=== PATIENT | female | born 1960 | race Caucasian/White ===

== ENCOUNTER 2023-08-06 12:40 | Inpatient (IN) | payer MEDICARE, MEDICAID ==
[~2023-08-06] VITALS: Ht 154.9 cm; Wt 42.7 kg
[2023-08-06 14:12] LABS: COVID AG,FIA SOURCE NASAL SWAB
[2023-08-06 14:16] LABS: SARS-COV2 (COVID) ANTIGEN,FIA Negative (Negative)
[2023-08-06 14:18] LABS: BASOPHILS % (AUTO) 0.6 % (0.0-2.0); EOSINOPHILS % (AUTO) 0.2 % (1.0-6.0); HEMATOCRIT 36.4 % (36-46); HEMOGLOBIN 12.1 g/dL (12.0-16.0); LYMPHOCYTES # (AUTO) 1.9 K/uL (1.0-4.8); LYMPHOCYTES % (AUTO) 27.6 % (22.0-44.0); MEAN CORPUSCULAR HEMOGLOBIN 29.4 pg (26.0-34.0); MEAN CORPUSCULAR HGB CONC 33.2 G/dL (31.0-37.0); MEAN CORPUSCULAR VOLUME 88 fL (80-100); MONOCYTES # (AUTO) 0.6 K/uL (0.1-1.0); MONOCYTES % (AUTO) 8.4 % (2.0-9.0); NEUTROPHILS # (AUTO) 4.2 K/uL (1.8-7.7); NEUTROPHILS % (AUTO) 63.2 % (40.0-70.0); PLATELET COUNT (AUTO) 238 K/uL (150-450); RED BLOOD CELL COUNT(AUTO) 4.13 MIL/uL (4.00-5.20); RED CELL DISTRIBUTION WIDTH 13.5 % (11.5-14.5); WHITE BLOOD COUNT (AUTO) 6.7 K/uL (4.5-11.0)
[2023-08-06 14:28] LABS: ANION GAP 8 mmol/L (8-16); CALCIUM, TOTAL 9.3 mg/dL (8.8-10.5); CARBON DIOXIDE 29 mmol/L (22-29); CHLORIDE 101 mmol/L (98-107); CREATININE 0.72 mg/dL (0.60-1.30); GLOMERULAR FILTR. RATE CALC > 60 mL/min (>60); GLUCOSE,RANDOM 115 mg/dL (70-110); POTASSIUM 3.7 mmol/L (3.5-5.1); SODIUM SERUM 138 mmol/L (136-145); UREA NITROGEN, BLOOD 10 mg/dL (7-18)
[2023-08-06 14:29] LABS: ALCOHOL, BLOOD (SERUM) < 3 mg/dL (0-10)
[2023-08-06 14:34] LABS: ALANINE AMINOTRANSFERASE 24 U/L (12-78); ALBUMIN 3.8 g/dL (3.4-5.0); ALKALINE PHOSPHATASE 72 U/L (46-116); ASPARTATE AMINOTRANSFERASE 15 U/L (15-37); BILIRUBIN,TOTAL 0.3 mg/dL (0.1-1.0); TOTAL PROTEIN, SERUM 7.8 g/dL (6.4-8.2)
[2023-08-06 14:57] VITALS: BP 136/68; PULSE 93; RESP 19; TEMP 98.2
[2023-08-06 17:00] LABS: APPEARANCE,URINE CLEAR (CLEAR); BILIRUBIN,URINE NEGATIVE (NEGATIVE); COLOR,URINE LIGHT YELLOW (YELLOW); GLUCOSE, URINE (UA) 300-500 mg/dL (NEGATIVE); KETONES,URINE NEGATIVE (NEGATIVE); LEUKOCYTE ESTERASE ,URINE NEGATIVE (NEGATIVE); NITRATE,URINE NEGATIVE (NEGATIVE); OCCULT BLOOD,URINE NEGATIVE (NEGATIVE); PH,URINE 6.5 (5.0-8.0); PROTEIN,URINE NEGATIVE (NEGATIVE); SPECIFIC GRAVITIY, URINE 1.008 (1.003-1.030); UROBILINOGEN,URINE <=1.0 mg/dL (<=1.0)
[2023-08-06 17:05] LABS: AMPHET/METH SCREEN,URINE NEGATIVE (NEGATIVE); BARBITURATE SCREEN, URINE NEGATIVE (NEGATIVE); BENZODIAZEPINES SCREEN,URINE NEGATIVE (NEGATIVE); CANNABINOID SCREEN,URINE NEGATIVE (NEGATIVE); COCAINE SCREEN,URINE NEGATIVE (NEGATIVE); METHADONE SCREEN, URINE NEGATIVE (NEGATIVE); OPIATE SCREEN,URINE NEGATIVE (NEGATIVE); PHENCYCLIDINE SCREEN,URINE NEGATIVE (NEGATIVE)
[2023-08-06 17:11] LABS: BACTERIA,URINE None Seen /HPF (None Seen); RBC,URINE None Seen /HPF (0-2); SQUAMOUS EPITHELIAL CELL,UR Rare /LPF (None Seen); WBC,URINE None Seen /HPF (0-5)
[2023-08-06 17:23] LABS: ALCOHOL, URINE DRUG SCREEN NEGATIVE (NEGATIVE)
[2023-08-06 17:35] LABS: PH,URINE DRUG SCREEN 6.5 (5.0-8.0)
[2023-08-06] MEDS: LORazepam 2 MG TABLET PO PRN (19:37)
[2023-08-06] MEDS: QUEtiapine FUMARATE 100 MG TABLET PO PRN (19:37)
[2023-08-07 01:47] VITALS: BP 110/57; PULSE 64; RESP 17; TEMP 97.3; O2SAT 97
[2023-08-07] MEDS ORDERED: INFLUENZA VIRUS VACCINE QVS 2023-24 (6MO+)/PF 60 MCG/0.5 ML SYRINGE IM. ONE (03:15)
[2023-08-07 09:00] VITALS: BP 112/64; PULSE 70; RESP 18; TEMP 97; O2SAT 99
[2023-08-07] MEDS ORDERED: LURA40TA4 PO (09:28)
[2023-08-07] MEDS ORDERED: BENZ1TAB84 PO (09:28)
[2023-08-07] MEDS ORDERED: PANT40TA54 PO (09:28)
[2023-08-07] MEDS ORDERED: METF-445 PO (09:28)
[2023-08-07] MEDS ORDERED: ATOR10TA69 PO (09:28)
[2023-08-07] MEDS ORDERED: BRIV50TA PO (09:28)
[2023-08-07] MEDS ORDERED: GLIP5TAB15 PO (09:28)
[2023-08-07] MEDS ORDERED: TRAZ-252 PO (09:28)
[2023-08-07] MEDS: BENZTROPINE MESYLATE 1 MG TABLET PO SCH ×2 (12:57→16:20)
[2023-08-07] MEDS: LURASIDONE HCL 40 MG TABLET PO SCH (16:26)
[2023-08-07] MEDS: TraZODone HCL 50 MG TABLET PO SCH (20:20)
[2023-08-07 21:11] VITALS: BP 115/60; PULSE 72; RESP 18; TEMP 97.4; O2SAT 97
[2023-08-08 08:33] VITALS: BP 118/60; PULSE 68; RESP 18; TEMP 97.6; O2SAT 98
[2023-08-08] MEDS: BENZTROPINE MESYLATE 1 MG TABLET PO SCH ×3 (08:40→18:06)
[2023-08-08] MEDS: LORazepam 2 MG TABLET PO PRN ×2 (08:40→13:29)
[2023-08-08] MEDS: QUEtiapine FUMARATE 100 MG TABLET PO PRN (08:40)
[2023-08-08] MEDS: LURASIDONE HCL 40 MG TABLET PO SCH (18:06)
[2023-08-08] MEDS: TraZODone HCL 50 MG TABLET PO SCH (21:18)
[2023-08-09] MEDS: BENZTROPINE MESYLATE 1 MG TABLET PO SCH ×3 (11:36→18:00)
[2023-08-09 15:04] VITALS: BP_SYST 101; BP_SYST 144; BP_DIAS 58; BP_DIAS 96; PULSE 70; PULSE 83; RESP 16; RESP 18; TEMP 97; TEMP 98.1; O2SAT 97; O2SAT 98
[2023-08-09] MEDS: LURASIDONE HCL 40 MG TABLET PO SCH (17:59)
[2023-08-09 20:15] VITALS: BP 145/55; PULSE 81; RESP 18; TEMP 97.5; O2SAT 97
[2023-08-09] MEDS: TraZODone HCL 50 MG TABLET PO SCH (20:29)
[2023-08-10] MEDS: QUEtiapine FUMARATE 100 MG TABLET PO PRN (02:34)
[2023-08-10 03:05] VITALS: PULSE 86; RESP 18; TEMP 97.8; O2SAT 97
[2023-08-10] MEDS: BENZTROPINE MESYLATE 1 MG TABLET PO SCH ×3 (09:25→16:55)
[2023-08-10] MEDS: LURASIDONE HCL 40 MG TABLET PO SCH (16:55)
[2023-08-10] MEDS: TraZODone HCL 50 MG TABLET PO SCH (20:34)
[2023-08-10 21:45] VITALS: BP 115/67; PULSE 93; RESP 18; TEMP 98.1
[2023-08-11] MEDS: BENZTROPINE MESYLATE 1 MG TABLET PO SCH ×3 (08:30→16:47)
[2023-08-11 09:42] VITALS: BP 130/64; PULSE 70; RESP 18; TEMP 97.6; O2SAT 98
[2023-08-11] MEDS: LURASIDONE HCL 40 MG TABLET PO SCH (16:48)
[2023-08-11] MEDS: TraZODone HCL 50 MG TABLET PO SCH (20:22)
[2023-08-11 20:50] VITALS: BP 134/69; PULSE 75; RESP 18; TEMP 97.8
[2023-08-12] MEDS: LORazepam 2 MG TABLET PO PRN (00:32)
[2023-08-12] MEDS: QUEtiapine FUMARATE 100 MG TABLET PO PRN (00:32)
[2023-08-12] MEDS: BENZTROPINE MESYLATE 1 MG TABLET PO SCH ×3 (08:30→17:04)
[2023-08-12] MEDS ORDERED: ALBUTEROL SULFATE 2.5 MG/0.5 ML NEB SOLUTION NEB PRN (09:30)
[2023-08-12 09:45] VITALS: BP 132/91; PULSE 96; RESP 17; TEMP 97.6
[2023-08-12 09:56] LABS: GLUCOMETER DEV NAME(LOC) 3EX.2; GLUCOSE,POINT OF CARE 169 MG/DL (70-110)
[2023-08-12] MEDS: LevETIRAcetam 500 MG TABLET PO SCH ×2 (10:39→17:04)
[2023-08-12] MEDS: LACOSAMIDE 100 MG TABLET PO SCH ×2 (10:39→17:04)
[2023-08-12] MEDS: MULTIVITAMINS WITH MINERALS, THERAPEUTIC TABLET PO SCH (10:39)
[2023-08-12] MEDS: LACTULOSE 20 GM/30 ML SOLUTION UDCUP PO SCH ×2 (12:30→17:00)
[2023-08-12] MEDS ORDERED: GlipiZIDE 5 MG TABLET PO SCH (17:00)
[2023-08-12] MEDS: LURASIDONE HCL 60 MG TABLET PO SCH (17:04)
[2023-08-12] MEDS: MetFORMIN HCL 850 MG TABLET PO SCH (17:04)
[2023-08-12] MEDS: GlipiZIDE 5 MG TABLET PO SCH (17:04)
[2023-08-12 17:27] LABS: GLUCOMETER DEV NAME(LOC) 3EX.2; GLUCOSE,POINT OF CARE 237 MG/DL (70-110)
[2023-08-12] MEDS ORDERED: MetFORMIN HCL 850 MG TABLET PO SCH (17:30)
[2023-08-12] MEDS: ATORVASTATIN CALCIUM 10 MG TABLET PO SCH (20:21)
[2023-08-12] MEDS: TraZODone HCL 50 MG TABLET PO SCH (20:21)
[2023-08-12 20:59] VITALS: BP 130/79; PULSE 75; RESP 18; TEMP 97.7
[2023-08-13 06:21] LABS: GLUCOMETER DEV NAME(LOC) 3EX.2; GLUCOSE,POINT OF CARE 228 MG/DL (70-110)
[2023-08-13 08:05] LABS: HEMOGLOBIN A1C 6.6 % (3.8-5.6)
[2023-08-13] MEDS: LevETIRAcetam 500 MG TABLET PO SCH ×2 (08:05→17:08)
[2023-08-13] MEDS: PANTOPRAZOLE SODIUM 40 MG DR TABLET PO SCH (08:05)
[2023-08-13] MEDS: MetFORMIN HCL 850 MG TABLET PO SCH ×2 (08:05→17:08)
[2023-08-13] MEDS: MULTIVITAMINS WITH MINERALS, THERAPEUTIC TABLET PO SCH (08:05)
[2023-08-13] MEDS: LACOSAMIDE 100 MG TABLET PO SCH ×2 (08:05→17:08)
[2023-08-13] MEDS: GlipiZIDE 5 MG TABLET PO SCH ×2 (08:05→17:08)
[2023-08-13] MEDS: BENZTROPINE MESYLATE 1 MG TABLET PO SCH ×3 (08:05→17:08)
[2023-08-13] MEDS: LACTULOSE 20 GM/30 ML SOLUTION UDCUP PO SCH ×3 (08:06→17:08)
[2023-08-13 08:18] LABS: CHOL/HDL RATIO 3.6 (3.9-5.7); THYROID STIMULATING HORMONE 0.7 uIU/mL (0.36-3.74)
[2023-08-13 09:00] VITALS: BP 132/60; PULSE 100; RESP 19; O2SAT 99
[2023-08-13] MEDS: LURASIDONE HCL 60 MG TABLET PO SCH (17:08)
[2023-08-13 17:26] LABS: GLUCOMETER DEV NAME(LOC) 3EX.2; GLUCOSE,POINT OF CARE 104 MG/DL (70-110)
[2023-08-13] MEDS: TraZODone HCL 50 MG TABLET PO SCH (20:14)
[2023-08-13] MEDS: ATORVASTATIN CALCIUM 10 MG TABLET PO SCH (20:14)
[2023-08-13 20:51] VITALS: RESP 18; TEMP 98
[2023-08-14 06:26] LABS: GLUCOMETER DEV NAME(LOC) 3EX.2; GLUCOSE,POINT OF CARE 206 MG/DL (70-110)
[2023-08-14 08:26] VITALS: BP 161/75; PULSE 67; RESP 16; TEMP 97.6; O2SAT 98
[2023-08-14] MEDS: MULTIVITAMINS WITH MINERALS, THERAPEUTIC TABLET PO SCH (08:43)
[2023-08-14] MEDS: LACOSAMIDE 100 MG TABLET PO SCH ×2 (08:43→17:27)
[2023-08-14] MEDS: LevETIRAcetam 500 MG TABLET PO SCH ×2 (08:43→17:27)
[2023-08-14] MEDS: LACTULOSE 20 GM/30 ML SOLUTION UDCUP PO SCH ×3 (08:43→17:27)
[2023-08-14] MEDS: BENZTROPINE MESYLATE 1 MG TABLET PO SCH ×3 (08:43→17:27)
[2023-08-14] MEDS: PANTOPRAZOLE SODIUM 40 MG DR TABLET PO SCH (08:43)
[2023-08-14] MEDS: MetFORMIN HCL 850 MG TABLET PO SCH ×2 (08:44→17:31)
[2023-08-14] MEDS: GlipiZIDE 5 MG TABLET PO SCH ×2 (08:48→17:34)
[2023-08-14 16:51] LABS: GLUCOMETER DEV NAME(LOC) 3EX.2; GLUCOSE,POINT OF CARE 222 MG/DL (70-110)
[2023-08-14] MEDS: LURASIDONE HCL 60 MG TABLET PO SCH (17:28)
[2023-08-14 20:30] VITALS: RESP 17; TEMP 97.7
[2023-08-14] MEDS: TraZODone HCL 50 MG TABLET PO SCH (21:00)
[2023-08-14] MEDS: ATORVASTATIN CALCIUM 10 MG TABLET PO SCH (21:00)
[2023-08-15 05:31] LABS: GLUCOMETER DEV NAME(LOC) 3EX.2; GLUCOSE,POINT OF CARE 170 MG/DL (70-110)
[2023-08-15] MEDS: GlipiZIDE 5 MG TABLET PO SCH ×2 (07:54→16:47)
[2023-08-15] MEDS: MetFORMIN HCL 850 MG TABLET PO SCH ×2 (07:54→16:47)
[2023-08-15] MEDS: PANTOPRAZOLE SODIUM 40 MG DR TABLET PO SCH (07:56)
[2023-08-15] MEDS: LACOSAMIDE 100 MG TABLET PO SCH ×2 (07:56→16:47)
[2023-08-15] MEDS: MULTIVITAMINS WITH MINERALS, THERAPEUTIC TABLET PO SCH (07:56)
[2023-08-15] MEDS: LevETIRAcetam 500 MG TABLET PO SCH ×2 (07:56→16:48)
[2023-08-15] MEDS: BENZTROPINE MESYLATE 1 MG TABLET PO SCH ×3 (07:57→16:47)
[2023-08-15] MEDS: LACTULOSE 20 GM/30 ML SOLUTION UDCUP PO SCH ×3 (07:57→16:47)
[2023-08-15 08:22] VITALS: RESP 19; TEMP 97.5
[2023-08-15 11:46] LABS: GLUCOMETER DEV NAME(LOC) 3EX.2; GLUCOSE,POINT OF CARE 213 MG/DL (70-110)
[2023-08-15 16:45] LABS: GLUCOMETER DEV NAME(LOC) 3EX.2; GLUCOSE,POINT OF CARE 147 MG/DL (70-110)
[2023-08-15] MEDS: LURASIDONE HCL 60 MG TABLET PO SCH (17:48)
[2023-08-15 20:30] VITALS: RESP 18; TEMP 97.6
[2023-08-15] MEDS: TraZODone HCL 50 MG TABLET PO SCH (21:32)
[2023-08-15] MEDS: ATORVASTATIN CALCIUM 10 MG TABLET PO SCH (21:33)
[2023-08-16] MEDS: MULTIVITAMINS WITH MINERALS, THERAPEUTIC TABLET PO SCH (08:32)
[2023-08-16] MEDS: PANTOPRAZOLE SODIUM 40 MG DR TABLET PO SCH (08:32)
[2023-08-16] MEDS: LevETIRAcetam 500 MG TABLET PO SCH ×2 (08:32→16:15)
[2023-08-16] MEDS: LACOSAMIDE 100 MG TABLET PO SCH ×2 (08:33→16:15)
[2023-08-16] MEDS: MetFORMIN HCL 850 MG TABLET PO SCH ×2 (08:33→17:28)
[2023-08-16] MEDS: LACTULOSE 20 GM/30 ML SOLUTION UDCUP PO SCH ×3 (08:33→16:16)
[2023-08-16] MEDS: BENZTROPINE MESYLATE 1 MG TABLET PO SCH ×3 (08:33→16:15)
[2023-08-16] MEDS: GlipiZIDE 5 MG TABLET PO SCH ×2 (08:34→17:28)
[2023-08-16 09:27] VITALS: BP 126/50; PULSE 88; RESP 18; TEMP 97.6; O2SAT 96
[2023-08-16 16:42] LABS: GLUCOMETER DEV NAME(LOC) 3EX.2; GLUCOSE,POINT OF CARE 159 MG/DL (70-110)
[2023-08-16] MEDS: LURASIDONE HCL 60 MG TABLET PO SCH (18:20)
[2023-08-16] MEDS: ATORVASTATIN CALCIUM 10 MG TABLET PO SCH (20:27)
[2023-08-16] MEDS: TraZODone HCL 50 MG TABLET PO SCH (20:27)
[2023-08-16 20:54] VITALS: BP 133/65; PULSE 85; RESP 18; TEMP 97.6
[2023-08-17 06:31] LABS: GLUCOMETER DEV NAME(LOC) 3EX.2; GLUCOSE,POINT OF CARE 149 MG/DL (70-110)
[2023-08-17] MEDS: BENZTROPINE MESYLATE 1 MG TABLET PO SCH ×3 (08:59→16:24)
[2023-08-17] MEDS: LACTULOSE 20 GM/30 ML SOLUTION UDCUP PO SCH ×3 (08:59→16:24)
[2023-08-17] MEDS: PANTOPRAZOLE SODIUM 40 MG DR TABLET PO SCH (09:00)
[2023-08-17] MEDS: LACOSAMIDE 100 MG TABLET PO SCH ×2 (09:00→16:24)
[2023-08-17] MEDS: GlipiZIDE 5 MG TABLET PO SCH ×2 (09:00→16:22)
[2023-08-17] MEDS: MetFORMIN HCL 850 MG TABLET PO SCH ×2 (09:00→16:22)
[2023-08-17] MEDS: LevETIRAcetam 500 MG TABLET PO SCH ×2 (09:02→16:24)
[2023-08-17] MEDS: MULTIVITAMINS WITH MINERALS, THERAPEUTIC TABLET PO SCH (09:02)
[2023-08-17 09:13] VITALS: BP 130/58; PULSE 67; RESP 18; TEMP 97; O2SAT 98
[2023-08-17 16:41] LABS: GLUCOMETER DEV NAME(LOC) 3EX.2; GLUCOSE,POINT OF CARE 192 MG/DL (70-110)
[2023-08-17] MEDS: LURASIDONE HCL 60 MG TABLET PO SCH (17:48)
[2023-08-17 20:28] VITALS: BP 126/45; PULSE 65; RESP 18; TEMP 96.8; O2SAT 95
[2023-08-17] MEDS: TraZODone HCL 50 MG TABLET PO SCH (20:46)
[2023-08-17] MEDS: ATORVASTATIN CALCIUM 10 MG TABLET PO SCH (20:48)
[2023-08-18 05:46] LABS: GLUCOMETER DEV NAME(LOC) 3EX.2; GLUCOSE,POINT OF CARE 175 MG/DL (70-110)
[2023-08-18 08:42] VITALS: BP 114/57; PULSE 64; RESP 18; TEMP 97.4; O2SAT 98
[2023-08-18] MEDS: MetFORMIN HCL 850 MG TABLET PO SCH ×2 (08:59→17:09)
[2023-08-18] MEDS: GlipiZIDE 5 MG TABLET PO SCH ×2 (09:00→17:08)
[2023-08-18] MEDS: LACTULOSE 20 GM/30 ML SOLUTION UDCUP PO SCH ×5 (09:00→17:00)
[2023-08-18] MEDS: LevETIRAcetam 500 MG TABLET PO SCH ×2 (09:03→17:09)
[2023-08-18] MEDS: LACOSAMIDE 100 MG TABLET PO SCH ×2 (09:03→17:09)
[2023-08-18] MEDS: BENZTROPINE MESYLATE 1 MG TABLET PO SCH ×3 (09:03→17:08)
[2023-08-18] MEDS: PANTOPRAZOLE SODIUM 40 MG DR TABLET PO SCH (09:03)
[2023-08-18] MEDS: MULTIVITAMINS WITH MINERALS, THERAPEUTIC TABLET PO SCH (09:03)
[2023-08-18] MEDS: LURASIDONE HCL 60 MG TABLET PO SCH (17:09)
[2023-08-18 17:26] LABS: GLUCOMETER DEV NAME(LOC) 3EX.2; GLUCOSE,POINT OF CARE 129 MG/DL (70-110)
[2023-08-18] MEDS: TraZODone HCL 50 MG TABLET PO SCH (21:00)
[2023-08-18] MEDS: ATORVASTATIN CALCIUM 10 MG TABLET PO SCH (21:00)
[2023-08-19 06:51] LABS: GLUCOMETER DEV NAME(LOC) 3EX.2; GLUCOSE,POINT OF CARE 155 MG/DL (70-110)
[2023-08-19 08:52] VITALS: BP 108/53; PULSE 72; RESP 18; TEMP 97.6; O2SAT 99
[2023-08-19] MEDS: LACTULOSE 20 GM/30 ML SOLUTION UDCUP PO SCH ×3 (08:55→16:38)
[2023-08-19] MEDS: GlipiZIDE 5 MG TABLET PO SCH ×2 (09:02→16:43)
[2023-08-19] MEDS: MetFORMIN HCL 850 MG TABLET PO SCH ×2 (09:05→16:43)
[2023-08-19] MEDS: LACOSAMIDE 100 MG TABLET PO SCH ×2 (09:05→16:43)
[2023-08-19] MEDS: LevETIRAcetam 500 MG TABLET PO SCH ×2 (09:05→16:43)
[2023-08-19] MEDS: MULTIVITAMINS WITH MINERALS, THERAPEUTIC TABLET PO SCH (09:05)
[2023-08-19] MEDS: BENZTROPINE MESYLATE 1 MG TABLET PO SCH ×5 (09:05→17:00)
[2023-08-19] MEDS: PANTOPRAZOLE SODIUM 40 MG DR TABLET PO SCH (09:06)
[2023-08-19] MEDS: LURASIDONE HCL 60 MG TABLET PO SCH (16:43)
[2023-08-19 17:26] LABS: GLUCOMETER DEV NAME(LOC) 3EX.2; GLUCOSE,POINT OF CARE 141 MG/DL (70-110)
[2023-08-19] MEDS: ATORVASTATIN CALCIUM 10 MG TABLET PO SCH (20:47)
[2023-08-19] MEDS: TraZODone HCL 50 MG TABLET PO SCH (20:47)
[2023-08-20] MEDS: GlipiZIDE 5 MG TABLET PO SCH ×2 (06:18→17:03)
[2023-08-20] MEDS: MetFORMIN HCL 850 MG TABLET PO SCH ×2 (06:19→17:03)
[2023-08-20 06:34] LABS: GLUCOMETER DEV NAME(LOC) 3EX.2; GLUCOSE,POINT OF CARE 94 MG/DL (70-110)
[2023-08-20] MEDS: LevETIRAcetam 500 MG TABLET PO SCH ×2 (08:08→17:03)
[2023-08-20] MEDS: BENZTROPINE MESYLATE 1 MG TABLET PO SCH ×3 (08:08→17:25)
[2023-08-20] MEDS: PANTOPRAZOLE SODIUM 40 MG DR TABLET PO SCH (08:09)
[2023-08-20] MEDS: MULTIVITAMINS WITH MINERALS, THERAPEUTIC TABLET PO SCH (08:10)
[2023-08-20] MEDS: LACOSAMIDE 100 MG TABLET PO SCH ×2 (08:10→17:03)
[2023-08-20] MEDS: LACTULOSE 20 GM/30 ML SOLUTION UDCUP PO SCH ×3 (08:12→17:00)
[2023-08-20 08:25] VITALS: BP 99/59; PULSE 69; RESP 18; TEMP 97.6; O2SAT 100
[2023-08-20] MEDS: LURASIDONE HCL 60 MG TABLET PO SCH (17:03)
[2023-08-20 17:17] LABS: GLUCOMETER DEV NAME(LOC) 3EX.2; GLUCOSE,POINT OF CARE 150 MG/DL (70-110)
[2023-08-20 20:36] VITALS: RESP 18
[2023-08-20] MEDS: TraZODone HCL 50 MG TABLET PO SCH (20:48)
[2023-08-20] MEDS: ATORVASTATIN CALCIUM 10 MG TABLET PO SCH (20:48)
[2023-08-21 05:46] LABS: GLUCOMETER DEV NAME(LOC) 3EX.2; GLUCOSE,POINT OF CARE 72 MG/DL (70-110)
[2023-08-21] MEDS: GlipiZIDE 5 MG TABLET PO SCH ×2 (06:37→17:23)
[2023-08-21] MEDS: MetFORMIN HCL 850 MG TABLET PO SCH ×2 (06:48→17:22)
[2023-08-21] MEDS: PANTOPRAZOLE SODIUM 40 MG DR TABLET PO SCH (08:43)
[2023-08-21] MEDS: MULTIVITAMINS WITH MINERALS, THERAPEUTIC TABLET PO SCH (08:43)
[2023-08-21] MEDS: BENZTROPINE MESYLATE 1 MG TABLET PO SCH ×3 (08:43→17:21)
[2023-08-21] MEDS: LACOSAMIDE 100 MG TABLET PO SCH ×2 (08:43→17:21)
[2023-08-21] MEDS: LevETIRAcetam 500 MG TABLET PO SCH ×2 (08:43→17:21)
[2023-08-21] MEDS: LACTULOSE 20 GM/30 ML SOLUTION UDCUP PO SCH ×3 (08:45→17:21)
[2023-08-21 09:14] VITALS: BP 130/46; PULSE 76; RESP 19; TEMP 97.6; O2SAT 98
[2023-08-21 11:56] LABS: GLUCOMETER DEV NAME(LOC) 3EX.2; GLUCOSE,POINT OF CARE 85 MG/DL (70-110)
[2023-08-21 17:11] LABS: GLUCOMETER DEV NAME(LOC) 3EX.2; GLUCOSE,POINT OF CARE 106 MG/DL (70-110)
[2023-08-21] MEDS: LURASIDONE HCL 60 MG TABLET PO SCH (17:22)
[2023-08-21 20:49] VITALS: BP 109/71; PULSE 86; RESP 18; TEMP 97.1; O2SAT 98
[2023-08-21] MEDS: TraZODone HCL 50 MG TABLET PO SCH (20:50)
[2023-08-21] MEDS: ATORVASTATIN CALCIUM 10 MG TABLET PO SCH (20:50)
[2023-08-22 06:06] LABS: GLUCOMETER DEV NAME(LOC) 3EX.2; GLUCOSE,POINT OF CARE 97 MG/DL (70-110)
[2023-08-22] MEDS: GlipiZIDE 5 MG TABLET PO SCH ×2 (06:50→17:11)
[2023-08-22] MEDS: MetFORMIN HCL 850 MG TABLET PO SCH ×2 (06:50→17:10)
[2023-08-22] MEDS: LACTULOSE 20 GM/30 ML SOLUTION UDCUP PO SCH ×3 (08:42→17:10)
[2023-08-22] MEDS: PANTOPRAZOLE SODIUM 40 MG DR TABLET PO SCH (08:43)
[2023-08-22] MEDS: LevETIRAcetam 500 MG TABLET PO SCH ×2 (08:43→17:10)
[2023-08-22] MEDS: MULTIVITAMINS WITH MINERALS, THERAPEUTIC TABLET PO SCH (08:43)
[2023-08-22] MEDS: BENZTROPINE MESYLATE 1 MG TABLET PO SCH ×3 (08:43→17:10)
[2023-08-22] MEDS: LACOSAMIDE 100 MG TABLET PO SCH ×2 (08:43→17:10)
[2023-08-22 09:00] VITALS: BP 121/60; PULSE 69; RESP 17; TEMP 98; O2SAT 99
[2023-08-22] MEDS ORDERED: LACT10SO10 PO (14:14)
[2023-08-22] MEDS ORDERED: MULT-1239 PO (14:14)
[2023-08-22] MEDS ORDERED: ATOR10TA69 PO (14:14)
[2023-08-22] MEDS ORDERED: LURA60TA4 PO (14:14)
[2023-08-22] MEDS ORDERED: PANT-31 PO (14:14)
[2023-08-22] MEDS ORDERED: LACO100 PO (14:14)
[2023-08-22] MEDS ORDERED: LEVE500T8 PO (14:14)
[2023-08-22] MEDS ORDERED: GLIP5TAB15 PO (14:14)
[2023-08-22] MEDS ORDERED: TRAZ-252 PO (14:14)
[2023-08-22] MEDS ORDERED: METF-1185 PO (14:14)
[2023-08-22] MEDS ORDERED: BENZ1TAB84 PO (14:14)
[2023-08-22 17:11] LABS: GLUCOMETER DEV NAME(LOC) 3EX.2; GLUCOSE,POINT OF CARE 141 MG/DL (70-110)
[2023-08-22] MEDS: LURASIDONE HCL 60 MG TABLET PO SCH (17:11)
[2023-08-22 20:26] VITALS: BP 90/61; PULSE 81; RESP 18; TEMP 98; O2SAT 96
[2023-08-22] MEDS: TraZODone HCL 50 MG TABLET PO SCH (21:06)
[2023-08-22] MEDS: ATORVASTATIN CALCIUM 10 MG TABLET PO SCH (21:07)
[2023-08-23 06:16] LABS: GLUCOMETER DEV NAME(LOC) 3EX.2; GLUCOSE,POINT OF CARE 119 MG/DL (70-110)
[2023-08-23] MEDS: MetFORMIN HCL 850 MG TABLET PO SCH (06:46)
[2023-08-23] MEDS: GlipiZIDE 5 MG TABLET PO SCH (06:46)
[2023-08-23] MEDS: BENZTROPINE MESYLATE 1 MG TABLET PO SCH (08:12)
[2023-08-23] MEDS: LevETIRAcetam 500 MG TABLET PO SCH (08:12)
[2023-08-23] MEDS: MULTIVITAMINS WITH MINERALS, THERAPEUTIC TABLET PO SCH (08:12)
[2023-08-23] MEDS: LACOSAMIDE 100 MG TABLET PO SCH (08:12)
[2023-08-23] MEDS: PANTOPRAZOLE SODIUM 40 MG DR TABLET PO SCH (08:12)
[2023-08-23] MEDS: LACTULOSE 20 GM/30 ML SOLUTION UDCUP PO SCH (08:12)
== END 2023-08-23 11:25 | DRG 885 ==
LOC: EMS 12:51 → 3EC 20:27
PROVIDERS: ADMIT Psychiatry & Neurology Psychiatry; ATTEND Psychiatry & Neurology Psychiatry
DX: F25.0 Schizoaffective disorder, bipolar type (principal); Z59.00 Homelessness unspecified; E11.9 Type 2 diabetes mellitus without complications; I10 Essential (primary) hypertension; E78.00 Pure hypercholesterolemia, unspecified; K21.9 Gastro-esophageal reflux disease without esophagitis; G40.909 Epilepsy, unspecified, not intractable, without status epilepticus; Z20.822 Contact with and (suspected) exposure to COVID-19; D64.9 Anemia, unspecified; G47.00 Insomnia, unspecified; Z79.899 Other long term (current) drug therapy
CPT/HCPCS: 80053; 80061; 80307; 81001; 81003; 82962; 83036; 84443; 85025; 87081; 99285; G0480; Q9967